=== PATIENT | female | born 1935 | race Caucasian/White ===

== ENCOUNTER 2017-03-21 17:48 | Emergency (ER) | payer OTHER ==
[2017-03-21 20:01] LABS: ADD MAN DIFF? NO
[2017-03-21] MEDS: IODIXANOL LOCM 100 ML BTL (20:04)
[2017-03-21] MEDS: SOD CHLORIDE 0.9% 100 ML (20:04)
[2017-03-21 20:05] LABS: WHITE BLOOD COUNT 18.3 10^3/ul (4.8-10.8)
[2017-03-21 20:05] LABS: BASOPHIL # 0.1 10^3/ul (0.0-0.1); BASOPHILS % 0.6 % (0.0-2.0); EOSINOPHILS # 0.2 10^3/ul (0.0-0.5); EOSINOPHILS % 0.8 % (0.0-7.0); HEMOGLOBIN 13.8 g/dl (12.0-16.0); LYMPHOCYTES # 3.3 10^3/ul (0.8-2.9); MEAN CORPUSCULAR HEMOGLOBIN 29.6 pg (29.0-33.0); MEAN CORPUSCULAR HGB CONC 33.7 g/dl (32.0-37.0); MEAN PLATELET VOLUME 9.2 fl (7.4-10.4); MONOCYTES % 5.4 % (0.0-11.0); NEUTROPHIL # 13.5 10^3/ul (1.6-7.5); NEUTROPHILS % 73.7 % (39.0-77.0); PLATELET COUNT 334 10^3/UL (140-415); RED BLOOD COUNT 4.66 10^6/ul (4.20-5.40); RED CELL DISTRIBUTION WIDTH 12.9 % (11.5-14.5)
[2017-03-21 20:22] LABS: PARTIAL THROMBOPLASTIN TIME 23.8 Sec (25.0-35.0); PROTIME 12.2 Sec (11.9-14.9)
[2017-03-21 20:24] LABS: ANION GAP 17 (8-16); BLOOD UREA NITROGEN 43 mg/dl (7-20); CALCIUM 9.4 mg/dl (8.4-10.2); CARBON DIOXIDE 26 mmol/L (21-31); CHLORIDE 96 mmol/L (97-110); CREATININE 1.48 mg/dl (0.44-1.00); GLUCOSE 149 mg/dl (70-220); POTASSIUM 3.7 mmol/L (3.5-5.1); SODIUM 135 mmol/L (135-144)
[2017-03-21 20:35] LABS: TROPONIN-I 0.021 ng/ml (0.00-0.12)
[2017-03-21 20:44] LABS: HEMOGLOBIN A1C 6.8 % (0-5.9)
[2017-03-21] MEDS: SOD CHLORIDE 0.9% 1,000 ML IV (21:00)
[2017-03-21] MEDS: ASPIRIN 81 MG TAB PO (21:50)
[2017-03-21] MEDS: LABETALOL HCL 20MG INJ IV (22:14)
== END 2017-03-21 22:07 | disposition short-term general hospital (02) ==
LOC: E/R 17:48
DX: I63.9 Cerebral infarction, unspecified (principal); D72.829 Elevated white blood cell count, unspecified; N28.9 Disorder of kidney and ureter, unspecified; R40.2142 Coma scale, eyes open, spontaneous, at arrival to emergency department; R40.2252 Coma scale, best verbal response, oriented, at arrival to emergency department; R40.2362 Coma scale, best motor response, obeys commands, at arrival to emergency department; I10 Essential (primary) hypertension; R20.0 Anesthesia of skin
CPT/HCPCS: 36415; 70450; 70496; 70498; 71045; 80048; 82962; 83036; 84484; 85025; 85610; 85730; 93005; 99291-25